=== PATIENT | male | born 1960 | race Caucasian/White ===

== ENCOUNTER → 2016-09-02 | Outpatient (CLI) | payer OTHER ==
--- NOTE | 2016-09-02 18:07 | CT ---
EXAMINATION TYPE: CT abdomen pelvis w con DATE OF EXAM: 09/02/2016 COMPARISON: NONE HISTORY: Hemoptysis and right sided abdominal pain x 1 1[address] DLP: 2046.00 mGycm Automated exposure control for dose reduction was used. TECHNIQUE: Helical acquisition of images was performed from the lung bases through the pelvis. CONTRAST: Performed with Oral Contrast and with IV Contrast, patient injected with 100 mL of Omnipaque 350. FINDINGS: Lung bases are clear. There is no pleural effusion. There are small hypodensities in the liver that a re nonspecific and could relate to hemangiomata. Spleen appears normal. There is no pancreatic mass. Gallbladder appears normal. There is no adrenal mass. Kidneys show satisfactory contrast opacification. There is no hydronephrosi s. Bladder distends smoothly. There is no sign of a pelvic mass. I see no intestinal wall thickening. There are no dilated loops. Appendix is not seen. There is no sign of appendicitis. I see no bony de structive process. There is narrowing at L5-S1 disc space.: There is a left hip prosthesis noted. IMPRESSION: SMALL NONSPECIFIC FOCI IN THE LIVER MEASURE UP TO 1.6 CM OF UNCERTAIN AND DOUBTFUL SIGNIFICANCE. NO S IGN OF ACUTE ABDOMEN AND PELVIS. NO SIGN OF APPENDICITIS.
--- NOTE | 2016-09-02 18:12 | CT ---
EXAMINATION TYPE: CT angio chest DATE OF EXAM: 09/02/2016 5:59 PM COMPARISON: NONE HISTORY: Hemoptysis and right sided abdominal pain x 1 1/[address] DLP: 2046.00 mGycm Automated exposure control for dose reduction was used. CONTRAST: CTA scan of the thorax is performed with IV Contrast, patient injected with 100 mL of Omnipaque 350, pulmonary embolism protocol. There are 3-D post processed images.. FINDINGS: The lungs are clear of infiltrate. There is no pleural effusion. There is no sign of a pulmonary mass . There is no pericardial effusion. There is no pleural effusion. There is normal contrast opacification of the pulmonary arteries. I see no filling defect. There is n ormal contrast opacification of the thoracic aorta. There is no sign of aneurysm or dissection. There is no mediastinal adenopathy. There is spurring in the thoracic spine. IMPRESSION: NEGATIVE CT ANGIOGRAM OF THE CHEST. NO EVIDENCE OF PULMONARY EMBOLISM.
== END | disposition home or self-care (01) ==
LOC: RADCTMAIN 15:48
PROVIDERS: ATTEND Internal Medicine
DX: R10.9 Unspecified abdominal pain (principal); R04.2 Hemoptysis
CPT/HCPCS: 71275; 74177; Q9967

== ENCOUNTER → 2016-09-20 | Outpatient (CLI) | payer OTHER ==
--- NOTE | 2016-09-20 08:47 | US ---
EXAMINATION TYPE: US liver DATE OF EXAM: 09/20/2016 COMPARISON: Correlation CT 09/02/2016. CLINICAL HISTORY: 56-year-old male K76.9 Liver Lesion. Abdominal pain, liver lesions visualized on re cent CT. TECHNIQUE: Multiple sonographic images of the right upper quadrant are obtained. FINDINGS: Liver Length: 19.2 cm Gallbladder Wall: 0.3 cm CBD: 0.3 cm Right Kidney: 11.6 x 5.4 x 5.6 cm Pancreas: Obscured by bowel gas Liver: Enlarged. A couple hyperechoic lesions are present, largest in the left hepatic lobe measuring 2.1 x 1.5 x 1.5 cm. There is the suggestion of posterior through transmission. Gallbladder: There is an 8 mm mural-based echogenic focus. No abnormal wall thickening or pericholec ystic fluid. The gallbladder itself is mildly hydropic. Evidence for sonographic Cowan's sign: No CBD: wnl Right Kidney: No evidence of hydronephrosis. Impression: 1. Hepatomegaly. There may be mild underlying fatty infiltration. Correlate with LFTs, lipid profile, and patient risk factors. 2. A couple hyperechoic lesions in the liver, largest in the left hepatic lobe measures 2.1 cm. Given posterior through transmission, hemangiomas are favored. A 6 month follow-up CT to ensure stability. 3. Either an 8 mm polyp or adherent calculus within the gallbladder. Six-month follow-up gallbladder ultrasound recommended. 4. Mildly hydropic gallbladder likely due to fasting state as there is no wall thickening or Cowan's sign to suggest acute cholecystitis.
== END | disposition home or self-care (01) ==
LOC: RADUSWWP 07:26
PROVIDERS: ATTEND Family Medicine
DX: K76.9 Liver disease, unspecified (principal); R16.0 Hepatomegaly, not elsewhere classified
CPT/HCPCS: 76705

== ENCOUNTER → 2023-10-03 | Outpatient (CLI) | payer BC ==
[2023-10-03 15:42] VITALS: BP 157/94; PULSE 94; RESP 16; TEMP 98.2
--- NOTE | 2023-10-03 16:39 | P.SLEEP ---
History of Present Illness H&P Date: 10/03/23 Chief Complaint: DAVION This is a 63-year-old male patient accompanied by his coming in for his sleep evaluation. It has been noted over the past 1 year, the patient has had progressive intermittent cognitive functions, attention, memory, and difficulties with his speech. In addition, the patient has had issues with lack of attention, short attention span, lack of patience, emotional lability and easy irritability and frequent careless mistakes and being impulsive and frustrated. He has already seen a neurologist. Initially was suspected to have a stroke at the testing that was done at that time showed no evidence of any CVA. As such, the exact nature of his neurologic impairment is not clear. It was suggested to do a sleep study to evaluate his sleep quality and make sure there is no underlying sleep disordered contributing to his daytime symptoms. No focal neurological deficits. No headaches. No neck stiffness. No history of meningitis. No history of head trauma. No substance abuse. No previous history of psychiatric disorders. According to the , the patient snores heavy and he jerks at nighttime. This occurs throughout the night. He goes to bed at 11:00 PM and wakes up 745 in the morning he does not take any naps during the day. He wakes up frequently middle of the night at least 5 times according to the . He is able to generate sleep without any major difficulties. As mentioned, he is restless and he twitches. No sleep paralysis. No hallucinations. No cataplexy. He sleeps on his side. He watches television excessively. No recent weight gain. No personal or family history of sleep apnea. Review of Systems ROS unobtainable: due to mental status Constitutional: Reports fatigue Eyes: denies as per HPI, denies blurred vision, denies bulging eye, denies decreased vision, denies diplopia, denies discharge, denies dry eye, denies irritation, denies itching, denies pain, denies photophobia, denies loss of peripheral vision, denies loss of vision, denies tunnel vision/blind spots Ears: deny: decreased hearing, ear discharge, earache, tinnitus Ears, nose, mouth and throat: Reports as per HPI Breasts: absent: as per HPI, gynecomastia Cardiovascular: Reports as per HPI Respiratory: Reports as per HPI Gastrointestinal: Reports as per HPI Genitourinary: Reports as per HPI Musculoskeletal: Reports as per HPI Musculoskeletal: absent: ankle pain, ankle stiffness, ankle swelling, as per HPI, elbow pain, elbow stiffness, elbow swelling, foot pain, foot stiffness, foot swelling, hand pain, hand stiffness, hand swelling, hip pain, hip stiffness, hip swelling, knee pain, knee stiffness, knee swelling, shoulder pain, shoulder stiffness, shoulder swelling, wrist pain, wrist stiffness, wrist swelling Integumentary: Reports as per HPI Neurological: Reports memory loss Psychiatric: Reports irritability, Reports mood swings Endocrine: Reports as per HPI Hematologic/Lymphatic: Reports as per HPI Allergic/Immunologic: Reports as per HPI Past Medical History Past Medical History: Hyperlipidemia, Hypertension, Osteoarthritis (OA) History of Any Multi-Drug Resistant Organisms: None Reported Past Surgical History: Joint Replacement, Orthopedic Surgery Additional Past Surgical History / Comment(s): sinus surgeries, hand surgery rt pinky finger Past Anesthesia/Blood Transfusion Reactions: No Reported Reaction Past Psychological History: No Psychological Hx Reported Smoking Status: Former smoker Past Alcohol Use History: Occasional Past Drug Use History: None Reported - Past Family History Father Family Medical History: Cancer, CVA/TIA, Hyperlipidemia, Hypertension, Osteoarthritis (OA) Mother Family Medical History: Cancer, Hyperlipidemia, Hypertension, Osteoarthritis (OA) Medications and Allergies Home Medications Medication Instructions Recorded Confirmed Type Acetaminophen [Tylenol 8 Hour] 650 mg PO DIRECTED PRN 10/03/23 10/03/23 History Atorvastatin [Lipitor] 20 mg PO DAILY 10/03/23 10/03/23 History Meloxicam [Mobic] 15 mg PO DAILY 10/03/23 10/03/23 History Montelukast Sodium 10 mg PO DAILY 10/03/23 10/03/23 History Tamsulosin [Flomax] 0.4 mg PO DAILY 10/03/23 10/03/23 History amLODIPine [Norvasc] 5 mg PO DAILY 10/03/23 10/03/23 History Physical Exam Vitals: Vital Signs Temp Pulse Resp BP Pulse Ox 10/03/23 15:41 98.2 F 94 16 157/94 97 Intake and Output 10/03/23 10/03/23 10/03/23 06:59 14:59 22:59 Other: Weight 87.09 kg The patient appeared well nourished and normally developed. Vital signs as documented. Head exam is unremarkable. No scleral icterus or corneal arcus noted. Neck is without jugular venous distension, thyromegaly, or carotid bruits. Carotid upstrokes are brisk bilaterally. Lungs are clear to auscultation and percussion. Cardiac exam reveals the PMI to be normally sized and situated. Rhythm is regular. First and second heart sounds normal. No murmurs, rubs or gallops. Abdominal exam reveals normal bowel sounds, no masses, no organomegaly and no aortic enlargement. Extremities are nonedematous and both femoral and pedal pulses are normal. Examination of the skin revealed no evidence of significant rashes, suspicious appearing nevi or other concerning lesions. Neurologically, the patient is awake and alert and the patient does not have any focal neurological deficit. Cranial nerves are essentially intact. Her Mini- Mental status exam was not done. Nevertheless, there is some obvious difficulty with his speech as the patient utilizes the wrong wording and sometimes is not appropriate and answering questions where he does not answer the questions asked of him and he tries to give an alternative explanation. Cranial nerves are grossly intact. Assessment and Plan Plan: Cognitive impairment, speech deficits, memory deficits and personality changes, currently under investigation. Exact cause for those problems are not clear. Patient has seen neurologist and no definite diagnosis has been established at this point in time. No evidence of any stroke. Rule out underlying dementia. Rule out underlying neurodegenerative disorders. Doubt any primary psychiatric disorder although the patient does have some psychiatric manifestations of his underlying neurologic disease. Possibility of obstructive sleep apnea is considered to be less likely. This is not typical for obstructive sleep apnea. Nevertheless, checking the patient sleep quality may help us to rule out any form of sleep breathing disorder or movement disorder and at the same time rule out any nocturnal seizures that could be contributing to his daytime neurologic impairment. Based on all this, the patient was set up for a screening polysomnography. Hypertension Hyperlipidemia BPH [employer]ired [employer] Plan Will proceed with a screening polysomnography due to the above-mentioned reasons. Rule out underlying nocturnal movement disorder. Rule out underlying nocturnal seizures. Rule out underlying sleep breathing disorder. Will make further recommendations to the primary care physician and the based on the results of sleep study. Proceed with ongoing neurologic workup regarding the above-mentioned symptoms. Sleep Note - Sleep Data ESS Total: 3 - Sleep Note Sleep Note: Temperature: 98.2 F Pulse Rate: 94 Respiratory Rate: 16 Blood Pressure: 157/94 SpO2: 97 Height: 5 ft 10.5 in Weight: 87.09 kg BMI: Neck Circumference: 15.5
== END ==
LOC: 3 N SLEEP 15:01
PROVIDERS: ATTEND Internal Medicine Critical Care Medicine
DX: G31.84 Mild cognitive impairment of uncertain or unknown etiology (principal); I10 Essential (primary) hypertension; E78.5 Hyperlipidemia, unspecified; N40.0 Benign prostatic hyperplasia without lower urinary tract symptoms; Z87.891 Personal history of nicotine dependence; Z79.899 Other long term (current) drug therapy
CPT/HCPCS: 99211

== ENCOUNTER 2023-10-10 19:32 | Outpatient (CLI) | payer BC ==
--- NOTE | 2023-10-29 22:29 | P.PCN ---
Date of Procedure: 11/10/23 Operative Findings: Polysomnography report Date of service is 10/10/2023 History This is a 63-year-old male patient accompanied by his coming in for his sleep evaluation. It has been noted over the past 1 year, the patient has had progressive intermittent cognitive functions, attention, memory, and difficulties with his speech. In addition, the patient has had issues with lack of attention, short attention span, lack of patience, emotional lability and easy irritability and frequent careless mistakes and being impulsive and frustrated. He has already seen a neurologist. Initially was suspected to have a stroke at the testing that was done at that time showed no evidence of any CVA. As such, the exact nature of his neurologic impairment is not clear. It was suggested to do a sleep study to evaluate his sleep quality and make sure there is no underlying sleep disordered contributing to his daytime symptoms. No focal neurological deficits. No headaches. No neck stiffness. No history of meningitis. No history of head trauma. No substance abuse. No previous history of psychiatric disorders. According to the , the patient snores heavy and he jerks at nighttime. This occurs throughout the night. He goes to bed at 11:00 PM and wakes up 745 in the morning he does not take any naps during the day. He wakes up frequently middle of the night at least 5 times according to the . He is able to generate sleep without any major difficulties. As mentioned, he is restless and he twitches. No sleep paralysis. No hallucinations. No cataplexy. He sleeps on his side. He watches television excessively. No recent weight gain. No personal or family history of sleep apnea. Technical description The patient was studied using a standard complex polysomnography protocol that included recording of the 2 EKG, Central, occipital and frontal EEG, right and left outer canthus EOG, submental EMG, right and left anterior tibialis EMG, respiratory airflow by thermocouple and or pressure/flow transducer, respiratory efforts by abdominal and thoracic PVDF belts, oxygen saturation by cable oximetry. Position by observation synchronized the PSG. Equipment used: [employer]. Sleep architecture The total recording duration was 392.0 minutes. The total sleep time was 272.0 minutes. The overall sleep efficiency was 69.4%. Latency to sleep onset was 31.5 minutes. The latest REM sleep was 74.5 minutes. The sleep architecture was characterized by 2.9% stage I, 72.4% stage II, 0% stage III, and 24.6% REM sleep. The total arousal index was 29.8. The wake after sleep onset time was 86 minutes. Respiratory analysis Sleep study showed a total of 89 obstructive events of which 1 was obstructive apnea, 1 was mixed apneas and 87 were obstructive hypopneas. The resulting AHI was 21.0. The patient had total of 8 central apneas with a central apnea index of 1.8. The respiratory arousal index was 7.3. Oxygenation analysis The baseline pulse ox was 97% while awake. Lowest ox saturation was 87% and the patient spent approximately 2 minutes of the sleep time below pulse ox of 89%. Minimum pulse ox was 87%. Sleep continuity summary A total of 135 arousals were counted with an index of 29.7. The respiratory arousal index was 7.3 Periodic limb movement activity A total of 219 periodic limb movement activity were counted with an index of 4 6.1. The periodic limb movements with arousals were to with an index of 0.4 Cardiac summary Average heart rate was 58 with a minimum heart rate of 54 and a maximum heart rate of 64 Assessment Obstructive sleep apnea, moderate in severity with an AHI of 21 Reduced sleep efficiency of 69.4% Increased arousal index of 29.8. Not strictly related to obstructive sleep apnea Periodic limb movement activities, mild to moderate in severity, not causing significant arousals Cognitive impairment, speech deficits, memory deficits and personality changes, currently under investigation. Exact cause for those problems are not clear. Patient has seen neurologist and no definite diagnosis has been established at this point in time. No evidence of any stroke. Rule out underlying dementia. Rule out underlying neurodegenerative disorders. Doubt any primary psychiatric disorder although the patient does have some psychiatric manifestations of his underlying neurologic disease. Possibility of obstructive sleep apnea is considered to be less likely. This is not typical for obstructive sleep apnea. Hypertension Hyperlipidemia BPH [employer]ired [employer] Plan The findings were explained to the patient and his family. The patient does have a moderate and severe obstructive sleep apnea. This obviously will need further treatment with CPAP machine. The patient accordingly will be asked to come into the sleep center to undergo a CPAP titration. Nevertheless, the patient is considered to have a independent neurologic event causing significant cognitive impairment resulting into deficits and speech and memory and personality changes which are not related to obstructive sleep apnea. I think at this point in time, treating his sleep apnea with CPAP therapy is reasonable. Accordingly, the patient will be asked to come into the sleep center to undergo a CPAP titration. The patient meanwhile will continue proceeding with his neurologic workup regarding the above-mentioned symptoms.
== END 2023-10-11 05:32 | disposition home or self-care (01) ==
LOC: 3 N SLEEP 19:32
PROVIDERS: ATTEND Internal Medicine Critical Care Medicine
DX: G47.33 Obstructive sleep apnea (adult) (pediatric) (principal); G47.61 Periodic limb movement disorder; I10 Essential (primary) hypertension; E78.5 Hyperlipidemia, unspecified; N40.0 Benign prostatic hyperplasia without lower urinary tract symptoms; Z86.73 Personal history of transient ischemic attack (TIA), and cerebral infarction without residual deficits; Z79.899 Other long term (current) drug therapy
CPT/HCPCS: 95810

== ENCOUNTER 2023-11-30 19:46 | Outpatient (CLI) | payer BC ==
--- NOTE | 2023-12-10 11:51 | P.PCN ---
Date of Procedure: 11/30/23 Operative Findings: CPAP titration report Date of service is 11/30/2023 Pertinent history 63-year-old male patient diagnosed having obstructive sleep apnea with an AHI of 21. The patient is coming in to undergo a CPAP titration. Pertinent physical findings Height is 5 feet 10 inches, weight is 192 with a body mass index of 27.1 Technical description The patient was studied using a standard complex polysomnography protocol that included recording of the Lead II EKG, Central, occipital and frontal EEG, right and left outer canthus EOG, submental EMG, right and left anterior tibialis EMG, respiratory airflow by thermocouple and or pressure/flow transducer, respiratory efforts by abdominal and thoracic PVDF belts, oxygen saturation by cable oximetry. Position by observation synchronized the PSG. Equipment used: [employer]. Stepwise CPAP titration was done to the mid all obstructive respiratory events Sleep characteristics The total time in bed was 389.5 minutes. The total sleep time was 136.0 minutes. The wake after sleep onset time was 223.5 minutes. The overall sleep efficiency was poor at 34.9%. Latency to sleep onset was 27.5 minutes. Latency to REM sleep was 132.0 minutes. The sleep architecture was characterized by 5.9% stage I, 76.5% stage II, 0% stage III, and a 17.6% REM sleep. The overall arousal index was 19.9 Respiratory summary CPAP titration was started initially at a pressure of 4 cm of water and pressure was gradually increased maintenance of 1 cm to reach a maximum pressure of 7 cm of water. Despite the poor sleep efficiency, this was a successful CPAP titration. There was completed ablation of the obstructive respiratory events specially at REM sleep and the patient did not encounter any significant oxygen saturations or ongoing obstructive apneas or hypopneas at the target CPAP pressure of 7 cm of water. Periodic limb movement summary The patient had no periodic limb movements Cardiac summary Average heart rate was 63 with a minimum heart rate of 59 and maximum heart of 71 Sleep continuity summary The patient had a total of 45 arousals with an index of 19.9. The respiratory arousal index was 0 Assessment Obstructive sleep apnea, moderate in severity with an AHI of 21, and the patient underwent a successful CPAP titration. Overall sleep efficiency was poor calculated to be had 34.9%. Nevertheless, despite the limited number of hours of sleep, the patient underwent a successful CPAP titration. Reduced sleep efficiency of 39.4% Increased arousal index of 19, Not strictly related to obstructive sleep apnea Cognitive impairment, speech deficits, memory deficits and personality changes, currently under investigation. Exact cause for those problems are not clear. Patient has seen neurologist and no definite diagnosis has been established at this point in time. No evidence of any stroke. Rule out underlying dementia. Rule out underlying neurodegenerative disorders. Doubt any primary psychiatric disorder although the patient does have some psychiatric manifestations of his underlying neurologic disease. Possibility of obstructive sleep apnea is considered to be less likely. This is not typical for obstructive sleep apnea. Hypertension Hyperlipidemia BPH Retired [employer] Plan Proceed with CPAP therapy every at a pressure of 7 cm of water with C-Flex of 3. The patient will be offered airfit N20 large size fullface mask. The patient was seen back in office in 30 to 90 days after initiating treatments to assess clinical response.
== END 2023-12-01 05:40 | disposition home or self-care (01) ==
LOC: 3 N SLEEP 19:46
PROVIDERS: ATTEND Internal Medicine Critical Care Medicine
CPT/HCPCS: 95811

== ENCOUNTER → 2024-04-05 | Outpatient (CLI) | payer BC | END | disposition home or self-care (01) | LOC: LABWHC1 09:40 | PROVIDERS: ATTEND Psychiatry & Neurology Neurology | DX: F03.90 Unspecified dementia, unspecified severity, without behavioral disturbance, psychotic disturbance, mood disturbance, and anxiety (principal) | CPT/HCPCS: 36415; 82607; 84443 ==